=== PATIENT | female | born 1955 | race Caucasian/White ===

== ENCOUNTER 2018-03-13 15:23 | Outpatient (RCR) | payer BC ==
[~2018-03-13] VITALS: Ht 154.9 cm; Wt 80.3 kg
[~2018-03-13 15:23] MED LIST: ALB17R INH; ALP25 PO; ALPR-441 PO; ASCO-178 PO; CETI-459 PO; FLUTR; GLUC100018 PO; HORMONES; KET10 PO; LEVO50 PO; LEVO75TA68 PO; LOR5/325 PO; MONT10TA22 PO; MULT-820 PO; OMEG-77 PO; PER PO; PRE20 PO; PROG200C7 PO; SUPPLEMENTS; THYROID ACTIVATOR; VITA-129 PO; VITAMINS; XOPENEX INH; ZINC50TA PO; [UNRECOGNIZED DRUG - CODE]; [UNRECOGNIZED DRUG - CODE] PO; [UNRECOGNIZED DRUG - OTHER]; [UNRECOGNIZED DRUG - OTHER]
--- NOTE | 2018-03-17 13:03 | Medical Nutrition Therapy ---
Nutrition Anthropometrics Height (Inches): 61 Weight (Pounds): 182 (with shoes, 176# on home scale) BMI: 33.8 Macario Nutrition Score: Macario Nutrition Risk Score: Dietary Referral Nutrition Risk Factors: Nutrition Risk Comment: Nutrition/Food History Breakfast: 2 pieces of fruit Lunch: soup or sand, candy Dinner: meat, starch, veg, dessert, sweet tea Snacks: candy, fruit Nutritional Education Nutrition Education Topic: Weight Loss Diet (hyperlipidemia + wt loss) Learning Readiness: Interested Teaching Methods: Discussion, Handout Response to Teaching: Verbalize understanding, Reinforcement needed Teaching Recipient: Patient Nutrition Counseling: Pt with elevated triglycerides and BG elevated in pre-diabetes range. Reviewed cooralation between elvated BG and triglycerides. Reviewed nutrtional goals to decreased these blood values by weight loss, limiting simple CHO and alcohol and exercise. Pt states currently doesn't exercise. Discussed the importance of exercise and that we will focus on diet at this session and discuss different exercise option next session. Pt provided 3 day intake which was high in sugary foods. Pt states has been eating Halloween candy lately but does admit to eating sweets daily. Recommend eliminating sugar in tea. Reviewed portion sizes, food group and plate method. Recommend try plate method and limiting starchy foods to 1/2c and fruit to 1/2c/meal. Pt will f/u 03/24 @ 3:15. Nutrition Monitoring & Eval RD Patient Assessment Time: [address] Assessment Type: RD Education Nutritional Comment: Provided 60 minutes MNT for dx of hyperlipidema and wt loss with BMI 33.8 Copies To Copies to: SAUL BRADLEY ; CHRIS BEACH Mar 17, 2018 11:14
--- NOTE | 2018-03-25 08:49 | Medical Nutrition Therapy ---
Nutrition Anthropometrics Height (Inches): 61 Weight (Pounds): 178 (with shoes) BMI: 33.6 Macario Nutrition Score: Macario Nutrition Risk Score: Dietary Referral Nutrition Risk Factors: Nutrition Risk Comment: Nutrition Monitoring & Eval RD Patient Assessment Time: [address] Assessment Type: RD Education Nutritional Comment: rovded < 15 minutes with weigh-in only. wt down 4#. F/u scheduled 04/07 on holiday weight maintence. Copies To Copies to: SAUL BRADLEY ; CHRIS BEACH Mar 25, 2018 08:49
--- NOTE | 2018-04-11 14:57 | Medical Nutrition Therapy ---
Nutrition Anthropometrics Height (Inches): 61 Weight (Pounds): 177 (with shoes) BMI: 33.4 Macario Nutrition Score: Macario Nutrition Risk Score: Dietary Referral Nutrition Risk Factors: Nutrition Risk Comment: Nutritional Education Nutrition Education Topic: Weight Loss Diet Learning Readiness: Interested Teaching Methods: Discussion, Handout Response to Teaching: Verbalize understanding Teaching Recipient: Patient Nutrition Counseling: Wt is down 1#. Reviewed tips to avoid wt gain over holiday. Goal is to maintain wt over the holidays. Pt will contact RD for f/u session in may. Nutrition Monitoring & Eval RD Patient Assessment Time: [address] Assessment Type: RD Education Nutritional Comment: Provided 30 minutes MNT for wt loss Copies To Copies to: SAUL BRADLEYP ; CHRIS BEACH Apr 11, 2018 14:57
== END 2018-04-17 ==
LOC: DIET 15:23
PROVIDERS: ATTEND Nurse Practitioner Psychiatric/Mental Health
DX: Z71.3 Dietary counseling and surveillance (principal); E78.5 Hyperlipidemia, unspecified; R63.5 Abnormal weight gain
CPT/HCPCS: 97802; 97803